=== PATIENT | female | born 1950 | race Caucasian/White ===

== ENCOUNTER → 2019-12-21 | Outpatient (CLI) | payer OTHER | LOC: LAB 09:46 | PROVIDERS: ATTEND Student in an Organized Health Care Education/Training Program | DX: Z01.812 Encounter for preprocedural laboratory examination (principal); Z20.828 Contact with and (suspected) exposure to other viral communicable diseases ==

== ENCOUNTER → 2019-12-26 | Outpatient (CLI) | payer OTHER ==
[~2019-12-26] VITALS: Ht 167.6 cm; Wt 90.7 kg
[~2019-12-26] MED LIST: CETIRIZINE HCL5 MG PO; CO-ENZYME Q-1010 MG PO; LEVOXYL75 MCG PO; MAGNESIUM250 M1 PO; PROBIOTIC1 EAC3 PO; SELENIUM100 MCG PO; TURMERIC500 M2 PO; VITAMIN B-121000 MC2 SUBLING; VITAMIN C500 M2 PO; VITAMIN D31250 MCG PO; VITAMIN E100 UNIT PO
--- NOTE | 2019-12-28 08:14 | P ---
[facility] [place] [address] PROCEDURE REPORT Name: SOPHIA HOLMAN [id number] Admission: 12/26/19 Attend Phys: Louis Phelps Discharge: Date of : 54 Report #: [id number] THIS REPORT FOR: cc: Linda Hendricks MD,Louis Orozco MD, MD ~ CC: Louis Hendricks MD DATE OF SERVICE: 12/26/2019 PROCEDURE PERFORMED: Colonoscopy with polypectomies. HISTORY OF PRESENT ILLNESS: The patient is a 69-year-old female who presents today for colonoscopy. She had a recent Cologuard test that was positive. She denies any symptoms. Last colonoscopy was approximately 12 years ago and reportedly negative. Possible family history of colon cancer in grandfather. DESCRIPTION OF PROCEDURE: The risks and benefits of the procedure were explained to the patient, those risks including but not limited to bleeding, perforation and the risk of sedation. She understood these risks and gave informed consent. Sedation was given using propofol per anesthesia. Next, a digital rectal exam was initially performed, which was normal. Next, using a standard Olympus colonoscope, the scope was placed in the patient's anus and advanced under direct vision to the cecum. The overall prep was good. The cecum and ileocecal valve were normal in appearance. In the ascending colon, a total of 5 polyps were noted. The largest was 1.2 cm. Others ranged in the 5-8 mm range. All were removed by snare cautery. The transverse and descending colon were normal. In the sigmoid colon, a 6 mm sessile polyp was also removed by snare cautery. Multiple diverticula were also noted in the sigmoid colon, no evidence of inflammation. The rectal mucosa was normal. On retroflexion, no abnormalities were noted. The scope was then withdrawn and the procedure terminated. The patient tolerated the procedure well. IMPRESSION: 1. Multiple colonic polyps as described above. 2. Sigmoid diverticulosis. 3. Otherwise, normal colonoscopy. RECOMMENDATIONS: 1. Await biopsy results. 2. Repeat colonoscopy in 3 years due to the size and number of polyps. [address] [address] PROCEDURE REPORT Name: SOPHIA HOLMAN Eleazar Room #: REG [facility]#: [id number] Admission: 12/26/19 Attend Phys: Louis Phelps Discharge: Date of : 54 Report #: [id number] Thank you for allowing me to participate in her care. <ELECTRONICALLY SIGNED> By: Louis Helms MD 12/28/19 0814 [id number] [id number] Louis Helms MD /nt
--- NOTE | 2019-12-28 14:07 | PATH ---
[facility] [place] [address] PATHOLOGY RPT PROCEDURE Name: MANDACANDELARIO A Room #: REG [place].#: [id number] Admission: 12/26/19 Date of : 54 Discharge: Report #: [id number] Path Case #: [id number] [facility] Accession Number: [id number] . 01 Material submitted: . PART A: colon - POLYP AT ASCENDING COLON X5. Modifiers: ascending PART B: colon - POLYP AT SIGMOID COLON. Modifiers: sigmoid . 01 Clinical history: . POSITIVE COLOGUARD . 02 Diagnosis: A. Polyp x5, ascending colon, endoscopic biopsy: - Largest fragment showing tubulovillous adenoma; negative for high-grade dysplasia. - Multiple smaller additional fragments showing tubular adenoma; negative for high-grade dysplasia. . B. Polyp, at sigmoid colon, endoscopic biopsy: - Tubular adenoma. - Negative for high-grade dysplasia. (IUV:brittni; 12/28/2019) QMS 12/28/2019 1135 Local . 02 Electronically signed: . Su Sanchez MD, Pathologist NPI- [id number] . 01 Gross description: . A. Received in formalin labeled "Candelario Holman, polyp at ascending colon x5" are multiple carlin-brown soft tissue fragments measuring in aggregate 1.5 x 0.7 x 0.3 cm, which are submitted in A1. Also present in the container are two larger polyps measuring 0.9 and 1.1 cm in greatest dimension. The margins are inked and the polyps are sectioned and submitted in cassettes A2-A3. . B. Received in formalin labeled "Candelario Holman, polyp at sigmoid colon" is a carlin-brown soft tissue fragment measuring 0.5 x 0.4 x 0.2 cm. The specimen is submitted entirely in B1. ([facility] [place]; 12/27/2019) [facility] 12/27/2019 1950 Local . 02 Pathologist provided ICD-10: D12.2, D12.5 . 02 CPT . 479963, 230582 Specimen Comment: A courtesy copy of this report has been sent to [phone], [place] [address] PATHOLOGY RPT PROCEDURE Name: CANDELARIO HOLMAN Room #: REG CLYadira Saucedo#: [id number] Admission: 12/26/19 Date of : 54 Discharge: Report #: [id number] Path Case #: [id number] Specimen Comment: [id number] Specimen Comment: Report sent to / DR NAZARIO Performed at: [address], [place] [id number] MD Jimmy Ledesma MD Phone: [phone] Performed at: [address] [id number] MD Su Sanchez MD Phone: [phone]
== END | disposition home or self-care (01) ==
LOC: GI 09:32
PROVIDERS: ATTEND Specialist
DX: R19.5 Other fecal abnormalities (principal); D12.2 Benign neoplasm of ascending colon; D12.5 Benign neoplasm of sigmoid colon; K57.30 Diverticulosis of large intestine without perforation or abscess without bleeding; Z98.890 Other specified postprocedural states; Z79.899 Other long term (current) drug therapy; Z88.8 Allergy status to other drugs, medicaments and biological substances
CPT/HCPCS: 62110; 62900